=== PATIENT | female | born 1975 | race Caucasian/White ===

== ENCOUNTER 2018-12-16 08:11 | Emergency (ER) | payer OTHER ==
--- OUTSIDE RECORDS SUMMARY | 2018-12-16 08:13 | XMS REPORT ---
:1975 [facility] Address [address] [place] [address] Dr. Mccall [address] [place] [id number] Care Team Providers Name Role Phone SAMEER CARLISLE Unavailable Unavailable Problems This patient has no known problems. Allergies, Adverse Reactions, Alerts This patient has no known allergies or adverse reactions. Medications This patient has no known medications. Encounters Start End Encounter Admission Attending Care Care Encounter Date/Time Date/Time Type Type Clinicians Facility Department ID 2018-10-04 2018-10-04 Outpatient [facility] 7500 17:00:00 17:00:00 Results Test Description Test Time Test Comments Text Results Atomic Results Result Comments TISSUE EXAM 2018-08-14 A previously reported Surgical Pathology Report 12:26:00 component Addendum is Case: no longer reported. [id number] Authorizing Provider: Sami Salguero MD Collected: 08/08/2018 1344 Ordering Location: [facility] Received: 08/08/2018 1538 Pathologist: Giana Gonsalves MD Specimen: Breast, Right REASON FOR ADDENDUM: TO REPORT BIOMARKERS RESULTS. - BIOMARKERS PERFORMED ON SECTION # A-1 - ESTROGEN RECEPTOR: POSITIVE - PROPORTION SCORE: 5/5 - INTENSITY SCORE: 2/3 - SUMMARY: 95% POSITIVE, INTERMEDIATE INTENSITY - PROGESTERONE RECEPTOR: POSITIVE - PROPORTION SCORE: 4/5 - INTENSITY SCORE: 2/3 - SUMMARY: 60% POSITIVE, INTERMEDIATE INTENSITY - HER 2 OVER-EXPRESSION: NEGATIVE (SCORE: 0) - Ki67: 41% (cut off-20%)NOTE: DR SALGUERO WAS INFORMED ON 08/14/2018 12:24 OF THE AMENDED BIOMARKERS REPORT DUE TO WRONG ENTRY.CAP REGULATION: FIXATION TIME FOR BIOMARKERS ASSESSMENTCollection date and time: 08/08/2018 1344Placed in fixative date and time: 08/08/2018 1344Removed from formalin date and time: 08/10/2018 0400Methodology: Fixation type and length: tissue was fixed in 10% neutral buffered formalin for a minimal of at least 6 hours and not longer than 72 hours. Antibody and Assay Methodology: Antibodies for ER, PgR, Her2 and Ki67 were assessed using clones SP1 ([place]), 1294 (DAKO), 4B5 (FDA Approved [place] Pathway) and 30-9 ([place]) respectively. Control Slides Examined: In-house known ER, MS, HER2 and Ki67 positive controls were evaluated along with test tissue. These control slides run alongside of the patients sample show appropriate staining. Internal positive and negative controls when available are evaluated.Interpretive Criteria: The staining results according to the ASCO/CAP guidelines for HER2 (Sary PENALOZA et al. Arch Pathol Lab Med 2017, June 07) and ER/MS (Yennifer BUTLER et al. Arch Pathol Lab Med 2010; 134:e48-e72) by ASCO/CAP guidelines.ER and MS "positive" requires greater or equal to 1% tumor cells with nuclear staining.HER2 "positive" (3+) requires circumferential membrane staining that is complete and intense in more than 10% of tumor cells. HER2 "equivocal" (2+) requires weak to moderate complete membrane staining observed in more than 10% of tumor cells .HER2 "negative" (1+) requires incomplete membrane staining that is faint/barely perceptible and in more than 10%of tumor cells. HER2 "negative (0)" requires no staining or membrane staining that is incomplete and is faint/barely perceptible and in less than or equal to 10% of tumor cells. The ER/MS Proportion Score indicates the proportion of positive staining tumor cells (0=none; 1 < 1/100; 2=1/100-1/10; 3=1/10-1/3; 4=1/3-2/3; 5> 2/3). The intensity score indicates the average intensity of positive staining tumor cells (0=none; 1=weak; 2=intermediate; 3=strong). For the purpose of defining "positive", the proportion and intensity scores were added to obtain a total score (range 0-8). ER and PgR "positive" (total score >2) were defined in studies correlating IHC total scores with clinical outcome in patients receiving hormonal therapy (see: Modern Pathol 11:155, 1998; J Clin Oncol 17:1474, 1998; Int J Cancer 89:111, 2000; Breast Cancer Res Treat 76:S36[abst#30], 2002). Immunohistochemistry technical testing was performed at [facility], Pathology Laboratory where it was developed and its performance characteristics were determined. It has not been cleared or approved by the U.S. Food and Drug Administration. The FDA has determined that such clearance or approval is not necessary. The test is used for clinical purposes. It should not be regarded as investigational or for research. This laboratory is certified under the Clinical Laboratory Improvement Amendments of 1988 (CLIA-88) as qualified to perform high complexity clinical laboratory testing.Addendum electronically signed by Giana Gonsalves MD on 08/13/2018 at 5:01 PMBREAST, RIGHT, POSTERIOR 10 O'CLOCK MASS , ULTRASOUND GUIDED CORE BIOPSY: - INFILTRATING DUCTAL CARCINOMA, MICROPAPILLARY TYPE - GREATEST MICROSCOPIC DIMENSION IN THE CORE: 6 MM - HISTOLOGIC GRADE: 3/3 (3+3+2) BY ESBR CRITERIA - MITOTIC INDEX: 10 MITOSES/ 10 HPF - NO LYMPHOVASCULAR INVASION IDENTIFIED - NO TUMOR INFILTRATING LYMPHOCYTES PRESENT Signing Pathologist Direct Phone Line: [phone] electronically signed by Giana Gonsalves MD on 08/13/2018 at 5:03 PM Biomarkers have been ordered and an addendum will follow.[id number], [id number] IDC with DCIS 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 Ink code: black.The specimen is entirely submitted A1. CG/pl Performed. MM, U/S, BIOPSY, 2018-08-13 Reason for Addendum BeginsMRN#: BREAST, RIGHT 14:34:00 Exam:->[id number]: 08/13/2018 Sami Salguero M.D. The malignant reports (IDC) were faxed and confirmed with Sameer Carlisle NP 's loan servicing representative Dm Monteiro on 08/13/18 at 1005. Addendum EndsN#: [id number] - MM, U/S, BIOPSY, BREAST, RIGHTULTRASOUND GUIDED BIOPSY RIGHT BREAST WITH MARKING DEVICE INSERTED AND POST DIGITAL MAMMOGRAPHIC IMAGIN08/08/2018PATIENT CONSENT: The procedure, risks and benefits, alternatives were discussed with the patient. Informed consent was obtained. A time-out was performed. An ultrasound guided biopsy using real-time ultrasound was performed for the 9 mm irregular shaped mass located in the right breast at 10 o'clock posterior depth. This was described on the previous mammography report. The skin was prepped in the usual manner. Local anesthetic was administered to the access site. A skin mabel was made in the breast. The abnormality was approached from the lateral aspect. A 14 gauge biopsy needle was placed adjacent to the abnormality under ultrasound guidance. Once the needle was documented to be in the correct location, two specimens were obtained using an Achieve automated firing device. A clip was inserted into the biopsy cavity. Post procedure digital mammographic imaging demonstrates the clip at the targeted area. The specimens were sent to the laboratory for pathological analysis. IMPRESSION: ULTRASOUND GUIDED BIOPSYUltrasound guided biopsy of the 9 mm mass in the right breast at 10 o'clock posterior depth was successful with no apparent post procedure complications. Sami Salguero M.D. pth/penrad:08/08/2018 14:04:48 4Th Grade Math Teacher: Noelle Li Surveyor [employer], [facility] [id number] , DIGITAL, 2018-08-08 right breast #[id number] - MM, UNILATERAL, 14:05:00 calcifications and DIGITAL, UNILATERAL, CONFER CONFER CHASE, mass CHASE, MAMMO, RIGHT INCLUDING MAMMO, RIGHT CADUNILATERAL RIGHT DIGITAL INCLUDING CAD PROBLEM SOLVING MAMMOGRAM WITH CAD POST-PROCEDURE IMAGING FOR MARKER PLACEMENT: 08/08/2018Comparison is made to exam dated: 06/27/2018 mammogram. There are scattered fibroglandular elements in the right breast that could obscure a lesion on mammography. Current study was also evaluated with a Computer Aided Detection (CAD) system. A biopsy marker is present in the right breast in the area of the biopsy. IMPRESSION: POST PROCEDURE MAMMOGRAM FOR MARKER PLACEMENTSuccessful uncomplicated ultrasound guided biopsy of the right breast mass and marker placement. Pathology result is pending. Sami Salguero M.D. pth/:08/08/2018 14:05:51 4Th Grade Math Teacher: Kinza Ying RT(R)(M), [facility], [facility] Mammogram BI-RADS: Post-procedure mammogram for marker placement [id number]
--- OUTSIDE RECORDS SUMMARY | 2018-12-16 08:13 | XMS REPORT | Clinical Summary ---
:1975 Author Organization [facility] Address [address] [place] [address] Care Team Providers Name Role Phone Unavailable Primary Care Provider Unavailable Allergies No Known Allergies Medications Medication Sig Dispensed Refills Start Date End Date Status loratadine (CLARITIN) Take 10 mg by 0 Active 10 mg tablet mouth daily. Active Problems Not on file Encounters Date Type Specialty Care Team Description 08/08/2018 Hospital Encounter Annmarieveronique Lucina Abnormal mammogram CANDICE Gomez 08/08/2018 Outside Orders Central Scheduling Lucina Carlisle Abnormal mammogram CANDICE Gomez (Primary Dx) 08/08/2018 Outside Orders Nara Bronson MD after 12/15/2017 Social History Tobacco Use Types Packs/Day Years Used Date Never Smoker Smokeless Tobacco: Never Used Alcohol Use Drinks/Week oz/Week Comments No Alcohol Habits Answer Date Recorded How often do you have a drink containing alcohol? Never 08/08/2018 How many drinks containing alcohol do you have on a typical Not asked day when you are drinking? How often do you have six or more drinks on one occasion? Not asked Sex Assigned at Date Recorded Not on file Job Start Date Occupation Industry Not on file Not on file Not on file Travel History Travel Start Travel End No recent travel history available. Last Filed Vital Signs Vital Sign Reading Time Taken Blood Pressure 114/65 08/08/2018 1:55 PM CDT Pulse 70 08/08/2018 1:55 PM CDT Temperature 36.7 C (98 F) 08/08/2018 1:55 PM CDT Respiratory Rate 16 08/08/2018 1:55 PM CDT Oxygen Saturation 99% 08/08/2018 1:55 PM CDT Inhaled Oxygen Concentration - - Weight 85.3 kg (188 lb) 08/08/2018 12:53 PM CDT Height 160 cm (5' 3") 08/08/2018 12:53 PM CDT Body Mass Index 33.3 08/08/2018 12:53 PM CDT Plan of Treatment Not on file Procedures Procedure Name Priority Date/Time Associated Comments Diagnosis MM, DIGITAL, Routine 08/08/2018 2:02 Results for this UNILATERAL, CONFER PM CDT procedure are in CHASE, MAMMO, RIGHT the results section. US GUIDED BREAST Routine 08/08/2018 1:59 Abnormal mammogram Results for this BIOPSY - RIGHT PM CDT procedure are in the results section. TISSUE EXAM AP Routine 08/08/2018 1:44 Results for this PM CDT procedure are in the results section. after 12/15/2017 Results MM, DIGITAL, UNILATERAL, CONFER CHASE, MAMMO, RIGHT (08/08/2018 2:02 PM CDT) Specimen Narrative Performed At [facility] #[id number] - MM, DIGITAL, UNILATERAL, CONFER CHASE, MAMMO, RIGHT INCLUDING CAD UNILATERAL RIGHT DIGITAL PROBLEM SOLVING MAMMOGRAM WITH CAD POST-PROCEDURE IMAGING FOR MARKER PLACEMENT: 08/08/2018 Comparison is made to exam dated:06/27/2018 mammogram. There are scattered fibroglandular elements in the right breast that could obscure a lesion on mammography. Current study was also evaluated with a Computer Aided Detection (CAD) system. A biopsy marker is present in the right breast in the area of the biopsy. IMPRESSION: POST PROCEDURE MAMMOGRAM FOR MARKER PLACEMENT Successful uncomplicated ultrasound guided biopsy of the right breast mass and marker placement.Pathology result is pending. Sami Salguero M.D. pth/:08/08/2018 14:05:51 Payroll Associate: Kinza Ying RT(R)(M), [facility] Mammogram BI-RADS: Post-procedure mammogram for marker placement [id number] Procedure Note Interface, External Ris In - 08/08/2018 4:00 PM CDT #[id number] - MM, DIGITAL, UNILATERAL, CONFER CHASE, MAMMO, RIGHT INCLUDING CAD UNILATERAL RIGHT DIGITAL PROBLEM SOLVING MAMMOGRAM WITH CAD POST-PROCEDURE IMAGING FOR MARKER PLACEMENT: 08/08/2018 Comparison is made to exam dated: 06/27/2018 mammogram. There are scattered fibroglandular elements in the right breast that could obscure a lesion on mammography. Current study was also evaluated with a Computer Aided Detection (CAD) system. A biopsy marker is present in the right breast in the area of the biopsy. IMPRESSION: POST PROCEDURE MAMMOGRAM FOR MARKER PLACEMENT Successful uncomplicated ultrasound guided biopsy of the right breast mass and marker placement. Pathology result is pending. Sami Salguero M.D. pth/:08/08/2018 14:05:51 Payroll Associate: Kinza Ying RT(R)(M), [facility] Mammogram BI-RADS: Post-procedure mammogram for marker placement [id number] Performing Organization Address City/State/Zipcode Phone Number [facility] US guided breast biopsy right (08/08/2018 1:59 PM CDT) Specimen Narrative Performed At Addendum Begins [facility] AMENDMENT: 08/13/2018 Sami Salguero M.D. The malignant reports (IDC) were faxed and confirmed with Lucina Carlisle NP 's premium representative Dm Monteiro on 08/13/18 at 1005. Addendum Ends #[id number] - MM, U/S, BIOPSY, BREAST, RIGHT ULTRASOUND GUIDED BIOPSY RIGHT BREAST WITH MARKING DEVICE INSERTED AND POST DIGITAL MAMMOGRAPHIC IMAGIN08/08/2018 PATIENT CONSENT: The procedure, risks and benefits, alternatives were discussed with the patient. Informed consent was obtained. A time-out was performed. An ultrasound guided biopsy using real-time ultrasound was performed for the 9 mm irregular shaped mass located in the right breast at 10 o'clock posterior depth.This was described on the previous mammography report.The skin was prepped in the usual manner.Local anesthetic was administered to the access site.A skin mabel was made in the breast.The abnormality was approached from the lateral aspect.A 14 gauge biopsy needle was placed adjacent to the abnormality under ultrasound guidance.Once the needle was documented to be in the correct location, two specimens were obtained using an Achieve automated firing device.A clip was inserted into the biopsy cavity.Post procedure digital mammographic imaging demonstrates the clip at the targeted area.The specimens were sent to the laboratory for pathological analysis. IMPRESSION: ULTRASOUND GUIDED BIOPSY Ultrasound guided biopsy of the 9 mm mass in the right breast at 10 o'clock posterior depth was successful with no apparent post procedure complications. Sami Salguero M.D. pth/penrad:08/08/2018 14:04:48 Payroll Associate: oNelle Li Corporate Consultant, [facility] [id number] Procedure Note Interface, External Ris In - 08/13/2018 3:05 PM CDT Addendum Begins AMENDMENT: 08/13/2018 Sami Salguero M.D. The malignant reports (IDC) were faxed and confirmed with Lucina Carlisle, [employer] 's premium representative Dm Monteiro on 08/13/18 at 1005. Addendum Ends #[id number] - MM, U/S, BIOPSY, BREAST, RIGHT ULTRASOUND GUIDED BIOPSY RIGHT BREAST WITH MARKING DEVICE INSERTED AND POST DIGITAL MAMMOGRAPHIC IMAGIN08/08/2018 PATIENT CONSENT: The procedure, risks and benefits, alternatives [...] laboratory for pathological analysis. IMPRESSION: ULTRASOUND GUIDED BIOPSY Ultrasound guided biopsy of the 9 mm mass in the right breast at 10 o'clock posterior depth was successful with no apparent post procedure complications. Sami Salguero M.D. pth/penrad:08/08/2018 14:04:48 Payroll Associate: Noelle Li Corporate Consultant, [facility] [id number] Performing Organization Address City/State/Zipcode Phone Number [facility] Tissue Exam (08/08/2018 1:44 PM CDT) Case Report Surgical Pathology Report Case: [id number] [facility] Authorizing Provider:Sami Salguero MDCollected: 08/08/2018 1344 [facility]: 08/[facility]/2018 1538 Pathologist: Giana Gonsalves MD Specimen:Breast, Right ADDENDUM REASON FOR ADDENDUM: TO REPORT BIOMARKERS RESULTS. [facility] - BIOMARKERS PERFORMED ON SECTION # A-1 - ESTROGEN RECEPTOR: POSITIVE - PROPORTION SCORE: 5/5 - INTENSITY SCORE: 2/3 - SUMMARY: 95% POSITIVE, INTERMEDIATE INTENSITY - PROGESTERONE RECEPTOR: POSITIVE - PROPORTION SCORE: 4/5 - INTENSITY SCORE: 2/3 - SUMMARY: 60% POSITIVE, INTERMEDIATE INTENSITY - HER 2 OVER-EXPRESSION: NEGATIVE (SCORE: 0) - Ki67: 41% (cut off-20%) NOTE: DR SALGUERO WAS INFORMED ON 08/14/2018 12:24 OF THE AMENDED BIOMARKERS REPORT DUE TO WRONG ENTRY. CAP REGULATION: FIXATION TIME FOR BIOMARKERS ASSESSMENT Collection date and time: 08/08/2018 1344 Placed in fixative date and time: 08/08/2018 1344 Removed from formalin date and time: 08/10/2018 0400 Methodology: Fixation type and length: tissue was fixed in 10% neutral buffered formalin for a minimal of at least 6 hours and not longer than 72 hours. Antibody and Assay Methodology: Antibodies for ER, PgR, Her2 and Ki67 were assessed using clones SP1 ([place]), 1294 (DAKO), 4B5 (FDA Approved [place] Pathway) and 30-9 ([place]) respectively. Control Slides Examined: In-house known ER, [place], HER2 and Ki67 positive controls were evaluated along with test tissue. These control slides run alongside of the patients sample show appropriate staini ng. Internal positive and negative controls when available are evaluated. Interpretive Criteria: The staining results according to the ASCO/CAP guidelines for HER2 (Sary PENALOZA et al. Arch Pathol Lab Med 2017, June 07) and ER/[place] (Yennifer BUTLER et al. Arch Pathol Lab Med 2010; 134:e48-e72) by ASCO/CAP guidelines. ER and OH positive requires greater or equal to 1% tumor cells with nuclear staining. HER2 positive (3+) requires circumferential membrane staining that is complete and intense in more than 10% of tumor cells. HER2 equivocal (2+) requires weak to moderate complete membrane staining observed in more than 10% of tumor cells . HER2 negative (1+) requires incomplete membrane staining that is faint/barely perceptible and in more than 10%of tumor cells. HER2 negative (0) requires no staining or membrane staining that is incomplete and is faint/ barely perceptible and in less than or equal to 10% of tumor cells. The ER/OH Proportion Score indicates the proportion of positive staining tumor cells (0=none; 1 < 1/100; 2=1/100-1/10; 3=1/10-1/3; 4=1/3-2/3; 5> 2/3). The intensity score indicates the average in tensity of positive staining tumor cells (0=none; 1=weak; 2=intermediate; 3= strong). For the purpose of defining "positive", the proportion and intensity scores were added to obtain a total score (rang e 0-8). ER and PgR "positive" (total score >2) were defined in studies correlating IHC total scores with clinical outcome in patients receiving hormonal therapy (see: Modern Pathol 11:155, 1998; J Clin Oncol 17:1474, 1999; Int J Cancer 89:111, 2000; Breast Cancer Res Treat 76:S36[abst#30], 2002). Immunohistochemistry technical testing was performed at [facility], Pathology Laboratory where it was developed and its performance characteristics were determined. It has not be en cleared or approved by the U.S. Food and Drug Administration. The FDA has determined that such clearance or approval is not necessary. The test is used for clinical purposes. It should not be regarde d as investigational or for research. This laboratory is certified under the Clinical Laboratory Improvement Amendments of 1988 (CLIA-88) as qualified to perform high complexity clinical laboratory testing. DIAGNOSIS BREAST, RIGHT, POSTERIOR 10 O'CLOCK MASS , ULTRASOUND GUIDED CORE BIOPSY: [facility] - INFILTRATING DUCTAL CARCINOMA, MICROPAPILLARY TYPE [facility] - GREATEST MICROSCOPIC DIMENSION IN THE CORE: 6 MM - HISTOLOGIC GRADE: 3/3 (3+3+2) BY ESBR CRITERIA - MITOTIC INDEX: 10 MITOSES/ 10 HPF - NO LYMPHOVASCULAR INVASION IDENTIFIED - NO TUMOR INFILTRATING LYMPHOCYTES PRESENT Signing Pathologist Direct Phone Line: [phone] COMMENT Biomarkers have been ordered and [facility] an addendum will follow. [facility] CPT Code(s) 23770, 01798 x4 [facility] CLINICAL HISTORY Questionable IDC with DCIS grade [facility] 2 to 3. [facility] SPECIMEN SOURCE Right posterior 10:00 breast [facility] mass biopsy ultrasound-guided [facility] GROSS DESCRIPTION The specimen is received in a formalin-filled container and labeled with the patient's information and labeled "right posterior 10:00 breast mass, ultrasound-guided biopsy" consisting of three yellow-wh [facility] ite breast core biopsies ranging in length from 0.5 to 1 cm. [facility] Ink code: black. The specimen is entirely submitted A1. CG/pl MICROSCOPIC DESCRIPTION Performed. [facility] SPECIAL STUDIES [facility] Specimen Tissue Performing Organization Address City/State/Zipcode Phone Number [facility] [address] [place] [address] [phone] CENTER after 12/15/2017 Insurance Payer Benefit Plan / Group Subscriber ID Type Phone Address [employer] - [employer] CARE [employer] HMO POS QPOS xxxxxxxxx HMO/POS
[2018-12-16] MEDS ORDERED: NA CHLORIDE 0.9% 1,000 ML ONE ×2 (09:15→10:10)
[2018-12-16] MEDS ORDERED: ACETAMINOPHEN 325 MG TABLET ONE (09:15)
[2018-12-16 09:20] LABS: Absolute Lymphocytes (CBC) 0.8 K/uL (0.7-4.9); Basophils % 0.6 % (0-1.3); Hematocrit 36.6 % (36.0-45.0); MPV 7.2 fL (7.6-11.3); RBC Red Blood Cell Count 4.04 M/uL (3.86-4.86)
[2018-12-16 09:41] LABS: ALT/SGPT 25 U/L (12-78); AST/SGOT 17 U/L (15-37); Albumin 3.4 g/dL (3.4-5.0); Alkaline Phosphatase 95 U/L (45-117); BUN Blood Urea Nitrogen 5 mg/dL (7-18); Bicarbonate 25 mmol/L (21-32); Bilirubin Direct 0.2 mg/dL (0-0.2); Bilirubin Total 0.7 mg/dL (0.2-1.0); Glucose Level 105 mg/dL (74-106); Lipase 74 U/L (73-393); Magnesium 1.9 mg/dL (1.8-2.4); Potassium 3.8 mmol/L (3.5-5.1); Sodium Level 141 mmol/L (136-145); Troponin (Emerg Dept Use Only) < 0.02 ng/mL (0.0-0.045)
[2018-12-16 10:03] LABS: Urine Blood TRACE (NEG); Urine Glucose NEGATIVE (NEG); Urine Protein TRACE (NEG); Urine pH 5.5 (5.0-7.0)
[2018-12-16] MEDS ORDERED: Levofloxacin500mg IV 500 MG/100 ML BAG IV ONE (10:10)
[2018-12-16] MEDS ORDERED: levoFLOXacin 250 MG TAB ONE (10:10)
[2018-12-16] MEDS ORDERED: DIPHENHYDRAMINE 50 MG/ML VIAL ONE (10:10)
--- NOTE | 2018-12-16 10:12 | ER ---
Nurse's Notes [facility] Name: Lucina Hogan Age: 42 yrs Sex: Female : 1975 Arrival Date: 12/16/2018 Time: 08:13 Bed 18 Private MD: Diagnosis: Fever, unspecified;Rash and other nonspecific skin eruption;Erythema multiforme, unspecified;Neutropenia, unspecified Presentation: 12/16 08:20 Presenting complaint: Rash on legs and arms x 2 days, fever today. TMAX 101. Currently hb being treated for breast CA by Dr. Mario Wood at [facility]. Transition of care: patient was not received from another setting of care. Onset of symptoms was November 14, 2018. Risk Assessment: Do you want to hurt yourself or someone else? Patient reports no desire to harm self or others. Care prior to arrival: None. 08:20 Method Of Arrival: Ambulatory hb 08:20 Acuity: DIANNA 2 hb 08:25 Initial Sepsis Screen: Does the patient meet any 2 criteria? HR > 90 bpm. Does the aa5 patient have a suspected source of infection? No. Patient's initial sepsis screen is negative. 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 - Social history:: Smoking status: Patient/guardian denies using tobacco. - Ebola Screening: : No symptoms or risks identified at this time. Screenin:25 Abuse screen: Denies threats or abuse. Nutritional screening: No deficits noted. aa5 Tuberculosis screening: No symptoms or risk factors identified. Fall Risk None identified. Assessment: 08:25 General: Appears comfortable, Behavior is calm, cooperative. Pain: Denies pain. Neuro: aa5 Level of Consciousness is awake, alert, obeys commands, Oriented to person, place, time, situation. Cardiovascular: Heart tones S1 S2 present Rhythm is regular. Respiratory: Airway is patent Respiratory effort is even, unlabored, Respiratory pattern is regular, symmetrical, Breath sounds are clear bilaterally. GI: Abdomen is round Bowel sounds present X 4 quads. Abd is soft and non tender X 4 quads. Patient currently denies nausea, vomiting. : Denies burning with urination, inability to void. EENT: No signs and/or symptoms were reported regarding the EENT system. Derm: Skin is pink, warm \T\ dry. Rash noted that is itchy, red, raised, on buttocks, back of upper left leg, back of upper right leg, gilmar arms, and hands. Musculoskeletal: Range of motion: intact in all extremities. 09:15 Reassessment: Patient is alert, oriented x 3, equal unlabored respirations, skin aa5 warm/dry/pink. Pt sitting up in bed. Pt's at bedside . 10:00 Reassessment: Patient is alert, oriented x 3, equal unlabored respirations, skin aa5 warm/dry/pink. Patient denies pain at this time. 10:20 Reassessment: Awaiting Levaquin infusion to finish for d/c home, pt verbalizes aa5 understanding. . 11:20 Reassessment: Patient is alert, oriented x 3, equal unlabored respirations, skin aa5 warm/dry/pink. Vital Signs: 08:19 BP 90 / 73; Pulse 118; Resp 16; Temp 100.1(O); Pulse Ox 96% on R/A; Weight 76.2 kg; hb Height 5 ft. 3 in. (160.02 cm); Pain 3/10; 10:00 BP 106 / 66; Pulse 85; Resp 16 S; Temp 98.6(O); Pulse Ox 96% on R/A; Pain 0/10; aa5 11:00 BP 108 / 64; Pulse 82; Resp 16 S; Temp 98.5(O); Pulse Ox 96% on R/A; Pain 0/10; aa5 08:19 Body Mass Index 29.76 (76.20 kg, 160.02 cm) hb ED Course: 08:13 Patient arrived in ED. mr 08:14 Corina Appiah FNP-C is [facility]. kb 08:14 Dennis Ramos MD is Attending Physician. kb 08:16 Madison Black, ISHAAN is Primary Nurse. aa5 08:18 Dennis Ramos MD is Attending Physician. moreno 08:22 Triage completed. hb 08:22 Arm band placed on. hb 08:25 Patient has correct armband on for positive identification. aa5 08:57 Chest Pa And Lat (2 Views) XRAY In Process Unspecified. EDMS 09:00 Urine collected: clean catch specimen, yenni colored. 3 09:08 EKG done, by ED staff, reviewed by Dennis Ramos MD. 3 09:09 Missed attempt(s): 20 gauge in left antecubital area. Bleeding controlled, band aid aa5 applied, catheter tip intact. 09:09 Initial lab(s) drawn, by la, sent to lab. First set of blood cultures drawn. aa5 09:23 Second set of blood cultures drawn. Inserted saline lock: 22 gauge in left forearm, aa5 using aseptic technique. 10:59 No provider procedures requiring assistance completed. aa5 11:20 IV discontinued, intact, bleeding controlled, No redness/swelling at site. Pressure aa5 dressing applied. Administered Medications: 09:15 Drug: Tylenol 650 mg Route: PO; aa5 10:00 Follow up: Response: No adverse reaction; Temperature is decreased aa5 09:25 Drug: NS 0.9% 1000 ml Route: IV; Rate: 1 bolus; Site: left forearm; aa5 10:19 Drug: Benadryl 25 mg Route: IVP; Site: left forearm; aa5 10:25 Follow up: Response: No adverse reaction aa5 10:19 Drug: LevaQUIN 500 mg Volume: 100 ml; Route: IVPB; Infused Over: 60 mins; Site: left aa5 forearm; 11:20 Follow up: Response: No adverse reaction; IV Status: Completed infusion aa5 10:19 Drug: LevOfloxacin 250 mg Route: PO; aa5 11:20 Follow up: Response: No adverse reaction aa5 10:19 Drug: NS 0.9% 1000 ml Route: IV; Rate: 1 bolus; Site: left forearm; aa5 11:20 Follow up: Response: No adverse reaction; IV Status: Completed infusion aa5 Outcome: 10:10 Discharge ordered by . moreno 11:20 Discharged to home ambulatory, with significant other. aa5 11:20 Condition: stable 11:20 Discharge instructions given to patient, significant other, Instructed on discharge instructions, follow up and referral plans. medication usage, Demonstrated understanding of instructions, follow-up care, medications, Prescriptions given X 2. 11:27 Patient left the ED. aa5 Signatures: Dispatcher [employer] [facility] Corina Appiah FNP-C FNP-Dennis Gonzalez MD MD cha Rivera, Mary mr BlackMadison ardon, RN RN aa5 Lily Moran RN RN Emma Hill 3 Corrections: (The following items were deleted from the chart) 12:11 11:20 Response: No adverse reaction; Temperature is decreased aa5 aa5
[2018-12-16 10:14] LABS: Anisocytosis 1+; Basophilic Stippling 1+; Blood Morphology Comment NOTED (NOT SEEN); Poikilocytosis 1+; Polychromasia 1+
--- NOTE | 2018-12-16 10:14 | EDPHYS ---
Physician Documentation [facility] Name: Lucina Hogan Age: 42 yrs Sex: Female : 1975 Arrival Date: 12/16/2018 Time: 08:13 Bed 18 Private MD: ED Physician Dennis Ramos HPI: 12/16 08:39 This 42 yrs old Female presents to ER via Ambulatory with complaints of moreno Fever, Rash. 08:39 The patient reports fever, that was measured at 101.1 degrees Fahrenheit. Onset: The moreno symptoms/episode began/occurred 2 day(s) ago. Modifying factors: there are no obvious modifying factors. Associated signs and symptoms: Pertinent positives: arthralgias, chills, skin rash. Severity of symptoms: At their worst the symptoms were mild in the emergency department the symptoms are unchanged. The patient has not experienced similar symptoms in the past. 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 - Social history:: Smoking status: Patient/guardian denies using tobacco. - Ebola Screening: : No symptoms or risks identified at this time. ROS: 08:40 Eyes: Negative for injury, pain, redness, and discharge, ENT: Negative for injury, moreno pain, and discharge, Neck: Negative for injury, pain, and swelling, Cardiovascular: Negative for chest pain, palpitations, and edema, Respiratory: Negative for shortness of breath, cough, wheezing, and pleuritic chest pain, Abdomen/GI: Negative for abdominal pain, nausea, vomiting, diarrhea, and constipation, Back: Negative for injury and pain, : Negative for injury, bleeding, discharge, and swelling, MS/Extremity: Negative for injury and deformity, Neuro: Negative for headache, weakness, numbness, tingling, and seizure, Psych: Negative for depression, anxiety, suicide ideation, homicidal ideation, and hallucinations, Allergy/Immunology: Negative for hives, rash, and allergies, Endocrine: Negative for neck swelling, polydipsia, polyuria, polyphagia, and marked weight changes, Hematologic/Lymphatic: Negative for swollen nodes, abnormal bleeding, and unusual bruising. 08:40 Skin: Positive for rash. Exam: 08:40 Head/Face: Normocephalic, atraumatic. Eyes: Pupils equal round and reactive to light, moreno extra-ocular motions intact. Lids and lashes normal. Conjunctiva and sclera are non-icteric and not injected. Cornea within normal limits. Periorbital areas with no swelling, redness, or edema. ENT: Nares patent. No nasal discharge, no septal abnormalities noted. Tympanic membranes are normal and external auditory canals are clear. Oropharynx with no redness, swelling, or masses, exudates, or evidence of obstruction, uvula midline. Mucous membranes moist. Neck: Trachea midline, no thyromegaly or masses palpated, and no cervical lymphadenopathy. Supple, full range of motion without nuchal rigidity, or vertebral point tenderness. No Meningismus. Chest/axilla: Normal chest wall appearance and motion. Nontender with no deformity. No lesions are appreciated. Respiratory: Lungs have equal breath sounds bilaterally, clear to auscultation and percussion. No rales, rhonchi or wheezes noted. No increased work of breathing, no retractions or nasal flaring. Abdomen/GI: Soft, non-tender, with normal bowel sounds. No distension or tympany. No guarding or rebound. No evidence of tenderness throughout. Back: No spinal tenderness. No costovertebral tenderness. Full range of motion. MS/ Extremity: Pulses equal, no cyanosis. Neurovascular intact. Full, normal range of motion. Neuro: Awake and alert, GCS 15, oriented to person, place, time, and situation. Cranial nerves II-XII grossly intact. Motor strength 5/5 in all extremities. Sensory grossly intact. Cerebellar exam normal. Normal gait. Psych: Awake, alert, with orientation to person, place and time. Behavior, mood, and affect are within normal limits. 08:40 Cardiovascular: Rate: tachycardic, Rhythm: regular, Pulses: Pulses are 4+ in bilateral radial, brachial, femoral, popliteal, posterior tibial and and dorsalis pedis arteries.. Heart sounds: normal, Edema: is not appreciated, JVD: is not appreciated. Vital Signs: 08:19 BP 90 / 73; Pulse 118; Resp 16; Temp 100.1(O); Pulse Ox 96% on R/A; Weight 76.2 kg; hb Height 5 ft. 3 in. (160.02 cm); Pain 3/10; 10:00 BP 106 / 66; Pulse 85; Resp 16 S; Temp 98.6(O); Pulse Ox 96% on R/A; Pain 0/10; aa5 11:00 BP 108 / 64; Pulse 82; Resp 16 S; Temp 98.5(O); Pulse Ox 96% on R/A; Pain 0/10; aa5 08:19 Body Mass Index 29.76 (76.20 kg, 160.02 cm) hb MDM: 08:14 Patient medically screened. kb 08:21 Patient medically screened. moreno 08:41 Data reviewed: vital signs, nurses notes, lab test result(s), EKG, radiologic studies, moreno plain films. 12/16 08:39 Order name: Basic Metabolic Panel; Complete Time: 09:58 [facility] 12/16 08:39 Order name: CBC with Diff [facility] 12/16 08:39 Order name: LFT's; Complete Time: 09:58 [facility] 12/16 08:39 Order name: Magnesium; Complete Time: 09:58 [facility] 12/16 08:39 Order name: Troponin (emerg Dept Use Only); Complete Time: 09:58 [facility] 12/16 08:39 Order name: Lipase; Complete Time: 09:58 [facility] 12/16 08:39 Order name: Blood Culture Adult (2) [facility] 12/16 08:39 Order name: Procalcitonin; Complete Time: 09:58 [facility] 12/16 08:39 Order name: Lactate; Complete Time: 09:58 [facility] 12/16 08:39 Order name: Strep; Complete Time: 09:58 [facility] 12/16 08:39 Order name: Influenza Screen (a \T\ B); Complete Time: 09:58 [facility] 12/16 08:39 Order name: Urine Culture [facility] 12/16 09:01 Order name: Urine Dipstick--Ancillary (enter results); Complete Time: 10:05 12/16 09:36 Order name: Throat Culture [facility] 12/16 08:39 Order name: EKG; Complete Time: 08:41 [facility] 12/16 08:39 Order name: Cardiac monitoring; Complete Time: 09:14 [facility] 12/16 08:39 Order name: EKG - Nurse/Tech; Complete Time: 09:14 [facility] 12/16 08:39 Order name: IV Saline Lock; Complete Time: 09:14 [facility] 12/16 08:39 Order name: Labs collected and sent; Complete Time: :14 [facility] 12/16 08:39 Order name: O2 Per Protocol; Complete Time: 08:42 [facility] 12/16 08:39 Order name: O2 Sat Monitoring; Complete Time: 08:42 [facility] 12/16 08:39 Order name: Chest Pa And Lat (2 Views) XRAY [facility] 12/16 08:39 Order name: Urine Dipstick-Ancillary (obtain specimen); Complete Time: 09:16 [facility] 12/16 10:17 Order name: Manual Differential EDMS Administered Medications: 09:15 Drug: Tylenol 650 mg Route: PO; aa5 10:00 Follow up: Response: No adverse reaction; Temperature is decreased aa5 09:25 Drug: NS 0.9% 1000 ml Route: IV; Rate: 1 bolus; Site: left forearm; aa5 10:19 Drug: Benadryl 25 mg Route: IVP; Site: left forearm; aa5 10:25 Follow up: Response: No adverse reaction aa5 10:19 Drug: LevaQUIN 500 mg Volume: 100 ml; Route: IVPB; Infused Over: 60 mins; Site: left aa5 forearm; 11:20 Follow up: Response: No adverse reaction; IV Status: Completed infusion aa5 10:19 Drug: LevOfloxacin 250 mg Route: PO; aa5 11:20 Follow up: Response: No adverse reaction aa5 10:19 Drug: NS 0.9% 1000 ml Route: IV; Rate: 1 bolus; Site: left forearm; aa5 11:20 Follow up: Response: No adverse reaction; IV Status: Completed infusion aa5 Disposition: 12/16/18 10:10 Discharged to Home. Impression: Fever, unspecified, Rash and other nonspecific skin eruption, Erythema multiforme, unspecified, Neutropenia, unspecified. - Condition is Stable. - Discharge Instructions: Erythema Multiforme, Fever, Adult, Rash, Neutropenia, Rash, [id number]. - Prescriptions for Benadryl 25 mg Oral Capsule - take 1 capsule by ORAL route every 6 hours As needed; 30 tablet. Levaquin 750 mg Oral Tablet - take 1 tablet by ORAL route once daily for 7 days; 7 tablet. - Medication Reconciliation Form, Thank You Letter, Antibiotic Education, Prescription Opioid Use form. - Follow up: Private Physician; When: 1 - 2 days; Reason: Recheck today's complaints, Continuance of care, Re-evaluation by your physician. - Problem is new. - Symptoms have improved. Signatures: Dispatcher [employer] EDCorina Garcia, FELT FINISHING SUPERVISOR-C FELT FINISHING SUPERVISOR-Ckb Dennis Ramos MD MD cha Calderon, Audri RN RN aa5 Lily Moran RN RN Corrections: (The following items were deleted from the chart) 11:27 10:10 12/16/2018 10:10 Discharged to Home. Impression: Fever, unspecified; Rash and aa5 other nonspecific skin eruption; Erythema multiforme, unspecified; Neutropenia, unspecified. Condition is Stable. Forms are Medication Reconciliation Form, Thank You Letter, Antibiotic Education, Prescription Opioid Use. Follow up: Private Physician; When: 1 - 2 days; Reason: Recheck today's complaints, Continuance of care, Re-evaluation by your physician. Problem is new. Symptoms have improved. moreno
[2018-12-16 10:15] LABS: Platelet Estimate ADEQ
--- NOTE | 2018-12-16 11:48 | RAD REPORT ---
EXAM DESCRIPTION: Isabel Melvin (2 Views)12/16/2018 8:56 am CLINICAL HISTORY: Cough COMPARISON: 2018 FINDINGS: The lungs appear clear of acute infiltrate. The heart is normal size IMPRESSION: No acute abnormalities displayed
--- NOTE | 2018-12-17 08:38 | EKG ---
Test Date: 2018-12-16 Test Time: 09:08:43 Credit Coordinator: ROSALINE MEASUREMENT RESULTS: Intervals: Rate: 92 [place]: 140 QRSD: 88 QT: 344 QTc: 425 [place]: P: 66 [place]: 140 QRS: 71 T: 36 INTERPRETIVE STATEMENTS: Normal sinus rhythm Normal ECG Compared to ECG 03/19/2018 11:08:27 Sinus bradycardia no longer present Electronically Signed On 12-17-18 08:36:20 CDT by Juvenal Duong
== END 2018-12-16 11:27 | disposition home or self-care (01) ==
LOC: ER 08:11
DX: R50.9 Fever, unspecified (principal); R21 Rash and other nonspecific skin eruption; D70.9 Neutropenia, unspecified; L51.9 Erythema multiforme, unspecified; Z85.3 Personal history of malignant neoplasm of breast
CPT/HCPCS: 96365; 93005; 87040 ×2; 87070; 87088; 85025; 87086; 80048; 36415; 83735; 80076; 87081; 83605; 81003; 84484; 83690; 84145; 87804 ×2; 71046; 96375; 99284; J7030 ×2